=== PATIENT | male | born 1990 | race Caucasian/White ===

== ENCOUNTER 2020-11-23 14:01 | Emergency (ER) | payer OTHER, BC ==
[2020-11-23] MEDS ORDERED: Iopamidol 612 MG/ML 100 ML Bottle IVPUSH ONE (15:21)
[2020-11-23 15:36] LABS: ANION GAP 10.4 mEq/L (7-13); CHLORIDE,CL 100 mmol/L (98-107); SODIUM,NA 136 mmol/L (136-145)
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
== END 2020-11-23 18:07 ==
LOC: DL.ED 14:01
DX: R10.12 Left upper quadrant pain (principal)
CPT/HCPCS: 36415; 70450; 71260; 72125; 74177; 80053; 80305-QW; 80307; 81001; 85025; 85610; 87086; 93005; 99283; 99284-25; Q9967